=== PATIENT | female | born 1955 | race Caucasian/White ===

== ENCOUNTER → 2019-10-11 14:00 | Outpatient (CLI) | payer BC, MEDICARE, SELFPAY ==
--- NOTE | ~2019-10-11 | MR_ITS ---
EXAMINATION: MR lumbar spine wo con DATE: 10/11/2019 14:31 INDICATION: Low back pain. Incontinence. TECHNIQUE: Magnetic resonance imaging (MRI) of the lumbar spine was performed without intravenous con trast. Sequences included sagittal T2-weighted FSE, sagittal T2-weighted FS FSE, sagittal T1-weighted FSE, and axial T2-weighted FSE. COMPARISON: None FINDINGS: There is 3 mm anterolisthesis of L4 on L5. Vertebral body heights are normal. There is mild ly decreased disc height at L4-L5. The distal spinal cord signal intensity is normal. The conus medul kaelyn is at L2. The following disc levels are specifically discussed: L1-L2: The disc does not extend beyond the endplate margin. There is mild bilateral facet joint osteo arthritis. There is no neural foraminal stenosis. There is no central canal stenosis. L2-L3: The disc does not extend beyond the endplate margin. There is mild bilateral facet joint osteo arthritis. There is no neural foraminal stenosis. There is no central canal stenosis. L3-L4: The disc is mildly bulging. There is moderate right and mild left facet joint osteoarthritis. There is mild bilateral neural foraminal stenosis. There is no central canal stenosis. L4-L5: The disc is bulging. There is severe bilateral facet joint osteoarthritis. There is mild bilat eral neural foraminal stenosis. There is no central canal stenosis. L5-S1: The disc does not extend beyond the endplate margin. There is severe bilateral facet joint ost eoarthritis. There is mild bilateral neural foraminal stenosis. There is no central canal stenosis. IMPRESSION: 1. Mild lumbar spondylosis. Reviewed, dictated and finalized at location A. IMPRESSION: 1. Mild lumbar spondylosis.
== END ==
PROVIDERS: PCP Family Medicine; Visit Provider Family Medicine
DX: M54.5 Low back pain (principal); R15.9 Full incontinence of feces; M47.816 Spondylosis without myelopathy or radiculopathy, lumbar region
CPT/HCPCS: 72148

== ENCOUNTER 2020-01-30 08:37 | Emergency (ER) | payer MEDICARE, SELFPAY ==
--- NOTE | ~2020-01-30 | XR_ITS ---
EXAMINATION: XR chest 1V portable EXAM DATE: 01/30/2020 09:37 INDICATION: Shortness of breath, weakness. TECHNIQUE: Portable AP frontal chest x-ray was obtained. Comparison is made to prior examination from 01/26/2017. FINDINGS: Minimal linear left midlung zone atelectasis. The lungs are otherwise clear. There are no pleural effusions. Cardiac silhouette is prominent but magnified on this AP technique. There is no pneumothorax suspected. The bones and soft tissues are unremarkable. IMPRESSION: Minimal linear left midlung zone atelectasis. Reviewed, dictated and finalized at location B.
[2020-01-30 08:34] VITALS: BP 158/98; PULSE 88; RESP 16; TEMP 36.6; O2SAT 98
[2020-01-30 09:18] LABS: Basophils Percent Auto 0.5 % (0.2-1.2); Eosinophils Absolute Auto 0.1 K/mm3 (0-0.3); Eosinophils Percent Auto 1.4 % (0-4.4); Hematocrit 38.5 % (37.0-47.0); Hemoglobin 12.1 g/dL (12.0-15.0); Immature Granulocyte Absolute 0.04 K/mm3 (0.00-0.031); Immature Granulocyte Percent A 0.5 % (0-0.5); Lymphocytes Absolute Auto 1.96 K/mm3 (0.9-3.2); Lymphocytes Percent Auto 25.5 % (18.3-44.2); Mean Corpuscular HGB Conc 31.4 g/dl (32-36); Mean Corpuscular Hemoglobin 26.9 pg (26-34); Mean Corpuscular Volume 85.6 fl (80-100); Monocytes Absolute Auto 0.5 K/mm3 (0.1-0.6); Monocytes Percent Auto 5.9 % (2.6-8.5); Neutrophils Absolute Auto 5.1 K/mm3 (1.3-6.7); Neutrophils Percent Auto 66.2 % (45.5-73.1); Platelet Count Result 252 k/mm3 (150-375); Red Cell Distribution Width 15.1 % (11.5-14.5); White Blood Count 7.7 K/mm3 (4.5-10.0)
--- NOTE | 2020-01-30 09:23 | ED.ABDPAIN ---
HPI - Abdominal Pain General Chief Complaint: Abdominal Pain Stated Complaint: Abd pain Time Seen by Provider: 01/30/20 08:38 Source: patient Mode of arrival: EMS Limitations: no limitations History of Present Illness HPI narrative: This patient is a 64 year old female who presents for evaluation of diarrhea and nausea. Patient states she has had diarrhea for 4 days. This morning she reports 3 episodes with yellow and mucous stool. She denies any blood. She was evaluated at [facility] . She had labs and CT abdomen and pelvis and she was diagnosed with gastroenteritis. She states she does not feel any better so she has come to this ER. She is unsure of fever. She has not vomiting. She has long standing prescription of phenergan for nausea so she has taken that medication today. She has not take anti diarrhea medication since yesterday. Her is starting to develop symptoms. She denies cough or sore throat. She has chronic shortness of breath. MD elicited complaint: abdominal pain Pain Consistency: constant Associated symptoms: nausea and diarrhea Related Data Home Medications Medication Instructions Recorded Confirmed buspirone 10 mg tablet 20 mg PO BID tablet 06/20/19 12/25/19 timolol maleate 0.5 % eye drops 1 drop EACH EYE Q12H 06/20/19 12/25/19 vitamins A,C,V-evhn-isklxr 14,320 1 cap PO ONCE cap 06/20/19 12/25/19 unit-226 mg-200 unit capsule acetaminophen 650 mg 650 mg PO Q12H 11/20/19 12/25/19 tablet,extended release Allergies Allergy/AdvReac Type Severity Reaction Status Date / Time Cephalosporins Allergy Unknown Rash Verified 01/30/20 18:30 lactose Allergy Unknown Diarrhea Verified 01/30/20 18:30 Latex, Natural Rubber Allergy Unknown Rash Verified 01/30/20 18:30 metoclopramide Allergy Unknown Rash Verified 01/30/20 18:30 cephalexin AdvReac Intermediate c-diff Verified 01/30/20 18:30 erythromycin base AdvReac Mild Gastrointestinal Verified 01/30/20 18:30 Upset Sulfa (Sulfonamide AdvReac Mild Rash Verified 01/30/20 18:30 Antibiotics) sulfanilamide AdvReac Mild Rash Verified 01/30/20 18:30 Review of Systems Review of Systems: All systems reviewed & are unremarkable except as noted in HPI and below Constitutional: Constitutional: Denies chills, Denies fever(s) and Reports weakness Cardiovascular: Cardiovascular: Denies chest pain Respiratory: Respiratory: Denies cough and Reports dyspnea ( chronic) Gastrointestinal: Gastrointestinal: Reports abdominal pain, Reports diarrhea and Reports nausea Genitourinary: Genitourinary: Reports no additional female genitourinary complaints Musculoskeletal: Musculoskeletal: Reports no additional musculoskeletal complaints [facility] Social History Social History Smoking status: Never smoker Alcohol intake: current Exam Narrative: Exam Narrative: GENERAL:, well-nourished, and in no acute distress. obese HEAD: Normocephalic, atraumatic EYES: PERRLA and EOMI, conjunctiva clear without discharge THROAT:Mucous membranes moist, Oropharynx normal without erythema, exudate, peritonsillar swelling or fluctuance NECK: Supple, without lymphadenopathy or mass RESPIRATORY: No respiratory distress, Airway patent, Respirations non-labored, Clear to auscultation without rales, rhonchi or wheeze HEART: Regular rate and rhythm. No murmur heard. Normal peripheral pulses. ABDOMEN: Soft, nontender, nondistended, normal active bowel sounds. No masses. No rebound or guarding, No organomegaly. EXTREMITIES: No edema, normal strength with full range of motion. SKIN: Warm, dry, normal color without rash NEURO: Alert and oriented x3. CN 2-12 grossly intact. No focal deficits. PSYCH: Normal mood and affect. Course Reevaluation(s) Reevaluation #1: I have discussed with patient that I have spoke with Dr. Mcdonald who agrees with management. Her labs are unremarkable . I was able
[2020-01-30] MEDS: ONDANSETRON INJ 4 MG/2 ML VIAL IV PUSH (09:28)
[2020-01-30] MEDS: LACTATED RINGERS 1,000 ML 999 ML IV CONT (09:29)
[2020-01-30 09:30] LABS: Lactic Acid Reflex 0.9 mmol/L (0.7-2.1)
[2020-01-30 09:33] LABS: Alanine Aminotransferase 38 U/L (4-35); Albumin Level 3.9 g/dL (3.5-5.1); Alkaline Phosphatase 64 U/L (38-126); Aspartate Amino Transferase 35 U/L (14-36); Bilirubin,Total 0.5 mg/dL (0.2-1.3); Blood Urea Nitrogen 9 mg/dL (7-17); Calcium 9.3 mg/dL (8.4-10.2); Carbon Dioxide 27 mmol/L (22-30); Chloride 102 mmol/L (98-107); Estimated CRCL calculation 50 ml/min; Estimated Glomerular Filt Rate 56; Glucose 106 mg/dL (65-105); Lipase 44 U/L (23-300); Potassium 3.3 mmol/L (3.4-5.0); Sodium 136 mmol/L (137-145)
[2020-01-30 09:51] VITALS: BP 147/84; BP 158/97; PULSE 88; PULSE 89
[2020-01-30 09:52] VITALS: BP 155/97; PULSE 98
[2020-01-30 10:03] LABS: Add Urine Microscopic? YES; Appearance Urine Clear (Clear); Bacteria Urine Trace /hpf; Bilirubin Urine Negative (Negative); Blood Urine 1+ (Negative); Color Urine Yellow (Yellow); Glucose Urine UA Negative (Negative); Ketones Urine 1+ mg/dL (Negative); Leukocyte Esterase Ur Negative LEU/UL (Negative); Mucus Urine Heavy /lpf; Nitrate Urine Negative (Negative); Protein Urine 1+ mg/dL (Negative); Specific Grav Ur 1.028 (1.001-1.035); Squamous Epithelial Cell Urine Occasional /hpf (Few); Urobilinogen Urine Negative mg/dL (<2.0); WBC Urine 0-3 /hpf
[2020-01-30 11:00] VITALS: BP 138/92; PULSE 90; RESP 16; O2SAT 98
[2020-01-30 12:15] VITALS: BP 133/72; PULSE 80; RESP 16; O2SAT 98
[2020-01-30 22:36] LABS: SARS-CoV-2 RNA PCR Negative
== END 2020-01-30 12:15 | disposition home or self-care (01) ==
PROVIDERS: Emergency Provider General Practice; PCP Family Medicine
DX: R19.7 Diarrhea, unspecified (principal); Z20.828 Contact with and (suspected) exposure to other viral communicable diseases
CPT/HCPCS: 36415; 51701; 71045; 80053; 81001; 83605; 83690; 85025; 87635; 96361; 96365; 96375; 99284; C9803; J0131; J2405; J7120; U0003

== ENCOUNTER 2020-02-14 08:37 | Outpatient (CLI) | payer MEDICARE, SELFPAY ==
--- NOTE | 2020-02-14 08:39 | ECG_ITS ---
Measurements Intervals [place] Rate: 88 P: 249 IN: 135 QRS: -3 QRSD: 88 T: 25 QT: 370 QTc: 448 Interpretive Statements ECTOPIC ATRIAL RHYTHM BORDERLINE T WAVE ABNORMALITY- ANTERIOR LEADS ABNORMAL ECG Electronically Signed On 02-14-2020 11:10:27 CDT by Kota Pizarro D.O.
== END 2020-02-14 08:38 | disposition home or self-care (01) ==
LOC: ANHSURGERY 08:39
PROVIDERS: PCP Family Medicine; Visit Provider Orthopaedic Surgery
DX: Z01.818 Encounter for other preprocedural examination (principal); I10 Essential (primary) hypertension; R94.31 Abnormal electrocardiogram [ECG] [EKG]
CPT/HCPCS: 93005

== ENCOUNTER 2020-02-17 00:59 | Outpatient (CLI) | payer MEDICARE, SELFPAY ==
[2020-02-17 19:21] LABS: SARS-CoV-2 RNA PCR Negative
== END 2020-02-17 01:00 | disposition home or self-care (01) ==
LOC: ANHCOVIDDT 01:00
PROVIDERS: PCP Family Medicine; Visit Provider Orthopaedic Surgery
DX: Z01.812 Encounter for preprocedural laboratory examination (principal); Z11.59 Encounter for screening for other viral diseases
CPT/HCPCS: 87635; C9803; U0003

== ENCOUNTER 2020-02-19 02:54 | Day surgery (SDC) | payer MEDICARE, SELFPAY ==
--- NOTE | 2020-02-12 09:52 | PM.IMHP ---
H&P: HPI History of Present Illness Chief complaint: Right Carpal Tunnel Syndrome Narrative: Adrianna Vincent is a 64 year old female Who complains of numbness and tingling in her right hand in the median nerve distribution. This is chronic in nature. She has problems with gripping or grasping she can hold objects for long periods and has trouble manipulating fine objects as well. Her symptoms are worsening with time. She has nocturnal awakening and has to shake her hand to try to relieve her symptoms. Despite conservative measures including anti-inflammatories bracing and activity modification her symptoms continue. An EMG study shows median nerve compression at the carpal tunnel right hand. At this point the patient has discuss further treatment options in detail with Dr. Moise she would now like to proceed with right carpal tunnel release. Review of Systems Review of Systems: All systems reviewed & are unremarkable except as noted in HPI and below PMFSH Past Medical History Medical History Arthritis of right shoulder region BMI 36.0-36.9,adult Cervical radicular pain Cervical spondylosis with myelopathy and radiculopathy Hypertension Knee osteoarthritis Lumbar spondylolysis Right carpal tunnel syndrome Stage 3 chronic kidney disease Surgical History Surgical History History of ankle surgery History of hemorrhoidectomy Family History Family History Grandparent Family history of transient ischemic attacks Diabetes mellitus Father Cerebrovascular accident Carcinoma of colon Family history of diabetes mellitus in first degree relative Family history of heart disease in male family member before age 55 Mother Carcinoma of colon Sibling Family history of malignant neoplasm of brain Other Family history of malignant neoplasm of male breast Social History Social History Smoking status: Never smoker Alcohol intake: current Meds Home Medications and Allergies Home Medications Medication Instructions Recorded Confirmed Type buspirone 10 mg tablet 20 mg PO BID tablet 06/20/19 02/06/20 History timolol maleate 0.5 % eye drops 1 drop EACH EYE Q12H 06/20/19 02/06/20 History vitamins A,C,V-pxpd-hbhxvx 14,320 1 cap PO ONCE cap 06/20/19 02/06/20 History unit-226 mg-200 unit capsule hydrochlorothiazide 25 mg tablet 25 mg PO DAILY #90 tablet 07/09/19 02/06/20 Rx losartan 100 mg tablet 100 mg PO DAILY #90 tablet 07/09/19 02/06/20 Rx pregabalin 75 mg capsule 150 mg PO BID #120 cap 07/11/19 02/06/20 Rx duloxetine 60 mg capsule,delayed 60 mg PO DAILY #90 cap 07/16/19 02/06/20 Rx release promethazine 50 mg tablet 50 mg PO Q4-6H PRN #30 tablet 08/21/19 02/06/20 Rx rosuvastatin 20 mg tablet 20 mg PO DAILY #90 tablet 09/18/19 02/06/20 Rx cyclobenzaprine 10 mg tablet 10 mg PO TID PRN #90 tablet 10/15/19 02/06/20 Rx diphenoxylate-atropine 2.5 2 tablet PO Q6H PRN #60 tablet 10/22/19 02/06/20 Rx mg-0.025 mg tablet celecoxib 200 mg capsule 200 mg PO DAILY #90 cap 11/17/19 02/06/20 Rx acetaminophen 650 mg 650 mg PO Q12H 11/20/19 02/06/20 History tablet,extended release hydrocodone 5 mg-acetaminophen 325 1 tablet PO Q8H #90 tablet 12/16/19 02/06/20 Rx mg tablet lansoprazole 15 mg capsule,delayed 15 mg PO DAILY #30 cap 12/24/19 02/06/20 Rx release lorazepam 0.5 mg tablet 0.5 mg PO TID PRN #90 tablet 12/24/19 02/06/20 Rx lorazepam 0.5 mg tablet 0.5 mg PO TID PRN #90 tablet 01/08/20 02/06/20 Rx metoprolol succinate 50 mg 50 mg PO DAILY #30 tablet 02/06/20 02/06/20 Rx tablet,extended release 24 hr Allergies Allergy/AdvReac Type Severity Reaction Status Date / Time Cephalosporins Allergy Unknown Rash Verified 02/06/20 16:00 lactose Allergy Unknown Diarrhea Verified 02/06/20 16:00 Latex, Natural Ru
[2020-02-12 16:06] VITALS: BMI 33.3
--- NOTE | 2020-02-19 07:05 | WPDHPUPDATE1 ---
History and Physical Update Update Date/Time: 02/19/20 07:05 History and Physical has been reviewed, including an updated exam of the patient. There are NO changes in the patient's condition. Risks, benefits, and alternatives have been discussed and questions answered. Patient agrees to proceed with procedure.
--- NOTE | 2020-02-19 08:54 | WPDANESEPPF ---
Anes - Initial Pre Proc Eval Procedure: Operation Date: 02/19/20 10:30 Proposed Procedures p Right Carpal Tunnel Release - Daniel Moise MD Date/Time: 02/19/20 08:54 Surgeon: Daniel Moise MD Pre Op Diagnosis: Right Carpal Tunnel Syndrome Patient Data Age: 64 Gender: F Height: 5 ft 2.5 in Weight: 83.95 kg Allergies Allergy/AdvReac Type Severity Reaction Status Date / Time Cephalosporins Allergy Unknown Rash Verified 02/12/20 15:33 lactose Allergy Unknown Diarrhea Verified 02/12/20 15:33 Latex, Natural Rubber Allergy Unknown Rash Verified 02/12/20 15:33 metoclopramide Allergy Unknown Confusion Verified 02/12/20 15:33 cephalexin AdvReac Intermediate c-diff Verified 02/12/20 15:33 erythromycin base AdvReac Mild Gastrointestinal Verified 02/12/20 15:33 Upset Sulfa (Sulfonamide AdvReac Mild Rash Verified 02/12/20 15:33 Antibiotics) sulfanilamide AdvReac Mild Rash Verified 02/12/20 15:33 Home Medications Medication Instructions Recorded Confirmed Type buspirone 10 mg tablet 20 mg PO BID tablet 06/20/19 02/12/20 History pregabalin 75 mg capsule 150 mg PO BID #120 cap 07/11/19 02/12/20 Rx promethazine 50 mg tablet 50 mg PO Q4-6H PRN #30 tablet 08/21/19 02/12/20 Rx cyclobenzaprine 10 mg tablet 10 mg PO TID PRN #90 tablet 10/15/19 02/12/20 Rx diphenoxylate-atropine 2.5 2 tablet PO Q6H PRN #60 tablet 10/22/19 02/12/20 Rx mg-0.025 mg tablet celecoxib 200 mg capsule 200 mg PO DAILY #90 cap 11/17/19 02/12/20 Rx acetaminophen 650 mg 650 mg PO Q4-8H 11/20/19 02/12/20 History tablet,extended release hydrocodone 5 mg-acetaminophen 325 1 tablet PO Q8H #90 tablet 12/16/19 02/12/20 Rx mg tablet lansoprazole 15 mg capsule,delayed 15 mg PO DAILY #30 cap 12/24/19 02/12/20 Rx release duloxetine 60 mg PO HS 02/12/20 02/12/20 History hydrochlorothiazide 25 mg PO HS 02/12/20 02/12/20 History lorazepam 1 mg PO TID PRN 02/12/20 02/12/20 History losartan 100 mg PO HS 02/12/20 02/12/20 History metoprolol succinate 50 mg PO HS 02/12/20 02/12/20 History rosuvastatin [Crestor] 20 mg PO HS 02/12/20 02/12/20 History hydrocodone-acetaminophen [[place]] 1 tablet PO Q6H PRN #40 tablet 02/19/20 Rx Patient hx anesthesia problems: none Family hx anesthesia problems: none PMFSH Past Medical History Medical History Arthritis of right shoulder region BMI 36.0-36.9,adult Cervical radicular pain Cervical spondylosis with myelopathy and radiculopathy Hypertension Knee osteoarthritis Lumbar spondylolysis Right carpal tunnel syndrome Stage 3 chronic kidney disease Surgical History Surgical History History of ankle surgery History of hemorrhoidectomy Family History Family History Grandparent Family history of transient ischemic attacks Diabetes mellitus Father Cerebrovascular accident Carcinoma of colon Family history of diabetes mellitus in first degree relative Family history of heart disease in male family member before age 55 Mother Carcinoma of colon Sibling Family history of malignant neoplasm of brain Other Family history of malignant neoplasm of male breast Social History Social History Smoking status: Never smoker Alcohol intake: current Living arrangements: with family Spiritual care concerns: No Anes - Eval Final PreProcedure Day of Procedure 02/19/20 08:54 Patient weight: obese Heart: regular rate and rhythm Lungs: clear to auscultation Airway: Mallampati scale class II Neurological: alert and oriented Last oral intake: >/= 8 hours ASA classification: III Emergent: no Anesthetic plan: proceed Anesthesia type and monitoring: general GIVS and standard monitoring Informed Consent: The patient's anesthetic plan and its attendant risks and benef
[2020-02-19] MEDS: LACTATED RINGERS 1,000 ML 30 ML IV CONT (09:00)
[2020-02-19 09:12] VITALS: BP 136/95; PULSE 92; RESP 20; TEMP 36.1; O2SAT 97; BMI 37.9
[2020-02-19] MEDS: ACETAMINOPHEN 500 MG TABLET 1000 MG PO (09:34)
[2020-02-19] MEDS: KETOROLAC 15 MG/ML VIAL (*BKC) IV PUSH (09:35)
[2020-02-19] MEDS: ceFAZolin 2 GM/D5W 50 ML 2 GM/50 ML BAG IVPB (09:51)
--- NOTE | 2020-02-19 09:54 | PM.PROC ---
Procedure Note - Detailed Date of procedure: 02/19/20 Pre-op diagnosis: Right Carpal Tunnel Syndrome Post-op diagnosis: same Procedure performed: [Right] carpal tunnel release Description of procedure: After sterile prep and drape, I injected the area of intended incision with 10ml of 1% lidocaine. A longitudinal incision was made in line with the ulnar boarder of the third finger. Disection carried down to the fascia, the fascia split and the carpal ligament identified. The carpal ligament was released and the flexor retinaculum was released as well. The nerve was noted to be red purple in color and in continuity. The wound was irrigated, hemostatis was obtained and closed with 3-0 prolene. Anesthesia: MAC Surgeon: Daniel Moise MD Estimated blood loss (mL): 5 Drains: No Packing: No Pathology: none sent Complications: No immediate complications Condition: stable Disposition: same day
[2020-02-19 10:20] VITALS: BP 115/65; PULSE 92; RESP 16; O2SAT 93
[2020-02-19 10:50] VITALS: BP 134/67; PULSE 93; RESP 16; O2SAT 92
[2020-02-19 11:20] VITALS: BP 131/70; PULSE 93; RESP 16; O2SAT 92
== END 2020-02-19 12:00 | disposition home or self-care (01) ==
PROVIDERS: PCP Family Medicine; Visit Provider Orthopaedic Surgery
PROC: (CPT 64721; principal; 2020-02-19 10:30)
DX: G56.01 Carpal tunnel syndrome, right upper limb (principal); I12.9 Hypertensive chronic kidney disease with stage 1 through stage 4 chronic kidney disease, or unspecified chronic kidney disease; N18.3 Chronic kidney disease, stage 3 (moderate); E66.9 Obesity, unspecified; Z68.37 Body mass index [BMI] 37.0-37.9, adult
CPT/HCPCS: 64721; 87635; 93005; A9270; C9803; J0690; J1885; J2250; J2405; J2704; J3010; J7120; U0003

== ENCOUNTER 2020-04-20 07:43 | Outpatient (CLI) | payer MEDICARE, SELFPAY ==
[2020-04-20 09:17] LABS: Basophils Absolute Auto 0.1 K/mm3 (0.0-0.1); Basophils Percent Auto 0.6 % (0.2-1.2); Eosinophils Absolute Auto 0.3 K/mm3 (0-0.3); Eosinophils Percent Auto 2.8 % (0-4.4); Hematocrit 39.4 % (37.0-47.0); Hemoglobin 12.3 g/dL (12.0-15.0); Immature Granulocyte Absolute 0.05 K/mm3 (0.00-0.031); Immature Granulocyte Percent A 0.5 % (0-0.5); Lymphocytes Absolute Auto 2.38 K/mm3 (0.9-3.2); Lymphocytes Percent Auto 25.5 % (18.3-44.2); Mean Corpuscular HGB Conc 31.2 g/dl (32-36); Mean Corpuscular Hemoglobin 26.1 pg (26-34); Mean Corpuscular Volume 83.7 fl (80-100); Mean Platelet Volume 10.6 fl (7.4-10.4); Monocytes Absolute Auto 0.6 K/mm3 (0.1-0.6); Monocytes Percent Auto 6.3 % (2.6-8.5); Neutrophils Percent Auto 64.3 % (45.5-73.1); Platelet Count Result 257 k/mm3 (150-375); Red Blood Count 4.71 M/mm3 (4.2-5.4); Red Cell Distribution Width 13.9 % (11.5-14.5); White Blood Count 9.3 K/mm3 (4.5-10.0)
[2020-04-20 09:26] LABS: Urine Cotinine NEGATIVE
[2020-04-20 09:27] LABS: Albumin Level 4.1 g/dL (3.5-5.1); Hemoglobin A1C 6.1 % (<5.7)
[2020-04-20 09:28] LABS: Chloride 102 mmol/L (98-107)
[2020-04-20 09:36] LABS: Anion Gap 5 mmol/L (8-16); Blood Urea Nitrogen 15 mg/dL (7-17); Calcium 9.6 mg/dL (8.4-10.2); Carbon Dioxide 30 mmol/L (22-30); Estimated Glomerular Filt Rate 56; Glucose 113 mg/dL (65-105); Potassium 3.6 mmol/L (3.4-5.0); Sodium 137 mmol/L (137-145)
== END 2020-04-20 07:44 | disposition home or self-care (01) ==
LOC: ANHSURGERY 07:46
PROVIDERS: Anesthesiology; PCP Family Medicine; Visit Provider Orthopaedic Surgery
DX: Z01.818 Encounter for other preprocedural examination (principal); M17.11 Unilateral primary osteoarthritis, right knee; I10 Essential (primary) hypertension
CPT/HCPCS: 36415; 80048; 80307; 82040; 83036; 85025; 87081

== ENCOUNTER 2020-05-01 01:32 | Outpatient (CLI) | payer MEDICARE, SELFPAY ==
[2020-05-01 16:30] LABS: SARS-CoV-2 RNA PCR Negative
== END 2020-05-01 01:33 | disposition home or self-care (01) ==
LOC: ANHCOVIDDT 01:32
PROVIDERS: Orthopaedic Surgery; PCP Family Medicine; Visit Provider Orthopaedic Surgery
DX: Z01.812 Encounter for preprocedural laboratory examination (principal); Z20.828 Contact with and (suspected) exposure to other viral communicable diseases
CPT/HCPCS: 87635; C9803; U0003

== ENCOUNTER 2020-05-04 02:05 | Day surgery (SDC) | payer MEDICARE, SELFPAY ==
[2020-04-20 08:16] VITALS: BMI 37.7
[2020-04-20 11:10] VITALS: BP 145/83; PULSE 92; RESP 16; TEMP 36.6; O2SAT 96
--- NOTE | 2020-05-03 09:58 | WPDANESEPP ---
Anes - Eval Pre Procedure Procedure: Operation Date: 05/04/20 07:30 Proposed Procedures p Right Total Knee Arthroplasty - Osbaldo Mackenzie MD Date/Time: 05/03/20 09:58 Pre Op Diagnosis: OA right knee Patient Data Age: 64 Gender: F Height: 1.59 m Weight: 95 kg Last Vital Signs Temp 36.6 C 04/20/20 11:10 Pulse 92 04/20/20 11:10 Resp 16 04/20/20 11:10 BP 145/83 H 04/20/20 11:10 Pulse Ox 96 04/20/20 11:10 Allergies Allergy/AdvReac Type Severity Reaction Status Date / Time Cephalosporins Allergy Unknown Redness of Verified 04/20/20 08:06 Skin lactose Allergy Unknown Diarrhea Verified 04/20/20 08:06 Latex, Natural Rubber Allergy Unknown Rash Verified 04/20/20 08:06 metoclopramide Allergy Unknown Confusion Verified 04/20/20 08:06 cephalexin AdvReac Intermediate c-diff Verified 04/20/20 08:06 erythromycin base AdvReac Mild Gastrointestinal Verified 04/20/20 08:06 Upset Sulfa (Sulfonamide AdvReac Mild Rash Verified 04/20/20 08:06 Antibiotics) sulfanilamide AdvReac Mild Rash Verified 04/20/20 08:06 Home Medications Medication Instructions Recorded Confirmed Type buspirone 10 mg tablet 20 mg PO BID tablet 06/20/19 04/23/20 History pregabalin 75 mg capsule 150 mg PO BID #120 cap 07/11/19 04/23/20 Rx promethazine 50 mg tablet 50 mg PO Q4-6H PRN #30 tablet 08/21/19 04/23/20 Rx celecoxib 200 mg capsule 200 mg PO DAILY #90 cap 11/17/19 04/23/20 Rx acetaminophen 650 mg 650 mg PO Q4-8H 11/20/19 04/23/20 History tablet,extended release lansoprazole 15 mg capsule,delayed 15 mg PO DAILY #30 cap 12/24/19 04/23/20 Rx release duloxetine 60 mg PO HS 02/12/20 04/23/20 History hydrochlorothiazide 25 mg PO HS 02/12/20 04/23/20 History losartan 100 mg PO HS 02/12/20 04/23/20 History metoprolol succinate 50 mg PO HS 02/12/20 04/23/20 History rosuvastatin [Crestor] 20 mg PO HS 02/12/20 04/23/20 History cyclobenzaprine 10 mg tablet 10 mg PO TID PRN #90 tablet 03/11/20 04/23/20 Rx hydrocodone 7.5 mg-acetaminophen 1 tablet PO Q6H PRN #60 tablet 03/20/20 04/23/20 Rx 325 mg tablet lorazepam 0.5 mg tablet 1 mg PO TID PRN #90 tablet 03/20/20 04/23/20 Rx diphenoxylate-atropine [Lomotil] 2 tablet PO PRN PRN 04/20/20 04/23/20 History rivaroxaban 10 mg tablet 10 mg PO DAILY #13 tablet 04/20/20 04/23/20 Rx Patient hx anesthesia problems: none Family hx anesthesia problems: none PMFSH Past Medical History Medical History (Updated 05/03/20 @ 10:02 by Dwight Osman CRNA) Anxiety Arthritis Arthritis of right shoulder region BMI 36.0-36.9,adult BMI 37.0-37.9, adult Bronchitis Cervical radicular pain Cervical spondylosis with myelopathy and radiculopathy Chest pain unspecified angina 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 Depression GERD (gastroesophageal reflux disease) Hypertension Knee osteoarthritis Lumbar spondylolysis Migraines Nonspecific ST-T wave electrocardiographic changes Abnormal ST Wave Osteoarthritis of right knee Pneumonia Right carpal tunnel syndrome Shingles Stage 3 chronic kidney disease Surgical History Surgical History History of ankle surgery History of hemorrhoidectomy Social History Social History Smoking status: Never smoker Second hand tobacco smoke exposure: Yes () Additional smoking assessment comments: DENIES ANY FORM OF TOBACCO/NICOTINE USE Alcohol intake: current Spiritual care concerns: No Exam Day of Procedure 05/03/20 09:58
[2020-05-04] VITALS (15 sets, daily range): BP systolic 108–169; BP diastolic 62–90; PULSE 84–100; RESP 12–18; TEMP 36.2–37.2; O2SAT 93–100
--- NOTE | ~2020-05-04 | XR_ITS ---
EXAMINATION: XR knee RT 2V DATE: 05/04/2020 10:18 INDICATION: Postoperative evaluation following right total knee arthroplasty. TECHNIQUE: Anteroposterior and lateral views of the right knee were obtained. COMPARISON: 06/18/2019 FINDINGS: Right total knee arthroplasty with patellar resurfacing appears well seated and in near anatomic alig nment. No fractures identified. Skin abraham and expected postoperative subcutaneous and intra-shubham cular gas. IMPRESSION: 1. Right total knee arthroplasty, negative for postoperative purposes. Reviewed, dictated and finalized at location A.
--- NOTE | 2020-05-04 07:02 | WPDANESEPPF ---
Anes - Initial Pre Proc Eval Procedure: Operation Date: 05/04/20 07:30 Proposed Procedures p Right Total Knee Arthroplasty - Osbaldo Mackenzie MD Date/Time: 05/04/20 07:02 Surgeon: Osbaldo Mackenzie MD Pre Op Diagnosis: OA right knee Patient Data Age: 64 Gender: F Height: 1.59 m Weight: 95 kg Last Vital Signs Temp 36.6 C 04/20/20 11:10 Pulse 92 04/20/20 11:10 Resp 16 04/20/20 11:10 BP 145/83 H 04/20/20 11:10 Pulse Ox 96 04/20/20 11:10 Allergies Allergy/AdvReac Type Severity Reaction Status Date / Time Cephalosporins Allergy Unknown Redness of Verified 04/20/20 08:06 Skin lactose Allergy Unknown Diarrhea Verified 04/20/20 08:06 Latex, Natural Rubber Allergy Unknown Rash Verified 04/20/20 08:06 metoclopramide Allergy Unknown Confusion Verified 04/20/20 08:06 cephalexin AdvReac Intermediate c-diff Verified 04/20/20 08:06 erythromycin base AdvReac Mild Gastrointestinal Verified 04/20/20 08:06 Upset Sulfa (Sulfonamide AdvReac Mild Rash Verified 04/20/20 08:06 Antibiotics) sulfanilamide AdvReac Mild Rash Verified 04/20/20 08:06 Home Medications Medication Instructions Recorded Confirmed Type buspirone 10 mg tablet 20 mg PO BID tablet 06/20/19 05/04/20 History pregabalin 75 mg capsule 150 mg PO BID #120 cap 07/11/19 05/04/20 Rx promethazine 50 mg tablet 50 mg PO Q4-6H PRN #30 tablet 08/21/19 05/04/20 Rx celecoxib 200 mg capsule 200 mg PO DAILY #90 cap 11/17/19 05/04/20 Rx acetaminophen 650 mg 650 mg PO Q4-8H 11/20/19 05/04/20 History tablet,extended release lansoprazole 15 mg capsule,delayed 15 mg PO DAILY #30 cap 12/24/19 05/04/20 Rx release duloxetine 60 mg PO HS 02/12/20 05/04/20 History hydrochlorothiazide 25 mg PO HS 02/12/20 05/04/20 History losartan 100 mg PO HS 02/12/20 05/04/20 History metoprolol succinate 50 mg PO HS 02/12/20 05/04/20 History rosuvastatin [Crestor] 20 mg PO HS 02/12/20 05/04/20 History cyclobenzaprine 10 mg tablet 10 mg PO TID PRN #90 tablet 03/11/20 05/04/20 Rx hydrocodone 7.5 mg-acetaminophen 1 tablet PO Q6H PRN #60 tablet 03/20/20 05/04/20 Rx 325 mg tablet lorazepam 0.5 mg tablet 1 mg PO TID PRN #90 tablet 03/20/20 05/04/20 Rx diphenoxylate-atropine [Lomotil] 2 tablet PO PRN PRN 04/20/20 05/04/20 History rivaroxaban 10 mg tablet 10 mg PO DAILY #13 tablet 04/20/20 05/04/20 Rx Patient hx anesthesia problems: none Family hx anesthesia problems: [facility] Past Medical History Medical History (Updated 05/03/20 @ 10:02 by Dwight Osman CRNA) Anxiety Arthritis Arthritis of right shoulder region BMI 36.0-36.9,adult BMI 37.0-37.9, adult Bronchitis Cervical radicular pain Cervical spondylosis with myelopathy and radiculopathy Chest pain unspecified angina 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 Depression GERD (gastroesophageal reflux disease) Hypertension Knee osteoarthritis Lumbar spondylolysis Migraines Nonspecific ST-T wave electrocardiographic changes Abnormal ST Wave Osteoarthritis of right knee Pneumonia Right carpal tunnel syndrome Shingles Stage 3 chronic kidney disease Surgical History Surgical History History of ankle surgery History of hemorrhoidectomy Social History Social History Smoking status: Never smoker Second hand tobacco smoke exposure: Yes () Additional smoking assessment comments: DENIES ANY FORM OF TOBACCO/NICOTINE USE Alcohol intake: current Living arrangements: with family Spiritual care concerns: No Anes - Eval Final PreProcedure Day of Procedure 05/04/20 07:02 Patient weight: obese Heart: regular rate and rhythm Lungs: clear to auscultation and normal air movement Airway: Mallampati scale class III Neurological: alert and oriented Last oral intake: >/= 8 hours ASA classification: III Emergent: no Anesthetic plan: proceed Anesthesia type and m
--- NOTE | 2020-05-04 07:08 | WPDHPUPDATE1 ---
History and Physical Update Update Date/Time: 05/04/20 07:08 History and Physical has been reviewed, including an updated exam of the patient. There are NO changes in the patient's condition. Risks, benefits, and alternatives have been discussed and questions answered. Patient agrees to proceed with procedure.
[2020-05-04] MEDS: KETOROLAC 15 MG/ML VIAL (*BKC) IV PUSH (07:22)
[2020-05-04] MEDS: TRANEXAMIC ACID 1,000MG/ISO100 1,000 MG/100 ML BAG 200 MG IVPB (07:25)
[2020-05-04] MEDS: LACTATED RINGERS 1,000 ML 30 ML IV CONT ×2 (07:26→10:04)
[2020-05-04] MEDS: FAMOTIDINE 20 MG/2 ML VIAL IV PUSH (07:27)
[2020-05-04] MEDS: ceFAZolin 2 GM/D5W 50 ML 2 GM/50 ML BAG IVPB ×3 (07:34→22:26)
--- NOTE | 2020-05-04 07:34 | WPDANESPNB ---
Anes - Peripheral Nerve Block Date/Time: 05/04/20 07:34 I have discussed with the patient/family/POA the placement of a peripheral nerve block for post-operative pain management, including associated risks, benefits, complications, and side effects. Alternative methods of post-operative analgesia were detailed. Questions were solicited and answers provided to the satisfaction of the patient/family/POA. Time-Out: A pre-procedural Time-Out was completed immediately before starting the procedure and confirmed: Patient Identification, Site, Procedure, Patient Position and the Availability of Requisite Equipment. Clinical Indications: Acute post-operative pain management requested by the operative surgeon. Nerve Block Insertion Note Anes-nerve block: adductor canal right Patient position: supine Skin prep: chlorhexidine Needle: 22 gauge, stimulating, insulated echogenic needle. Needle length: 80 mm Technique: ultrasound Injectate: bupivacaine 0.5% with epi 5 mcg/ml (30cc) Observations: tolerated well Complications: none Procedure start time:: 727 Procedure end time:: 730
[2020-05-04] MEDS: BUPIVACAINE/EPINEPHRINE 0.5% 10 ML VIAL 40 ML INFILTRATE (08:16)
[2020-05-04] MEDS: ceFAZolin SODIUM 1 GM VIAL IV PUSH (09:43)
--- NOTE | 2020-05-04 10:08 | PM.PROC ---
Procedure Note - Detailed Date of procedure: 05/04/20 Pre-op diagnosis: OA right knee Post-op diagnosis: same Procedure performed: right total knee replacement Description of procedure: The patient was identified and proper site identified. In the preop holding area the anesthesia team performed a right sub sartorial block after which the patient was taken to the operating room and transferred to the OR table positioning supine taking care to pad the torso and extremities. After a spinal anesthetic was administered a nonsterile tourniquet was placed high on the right thigh. The right lower extremity was prepped and draped in the usual sterile fashion. The extremity was exsanguinated and with the knee flexed tourniquet was inflated to 300 mmHg remaining up for approximately 65 minutes. An anterior midline incision was made and a modified medial parapatellar approach was used. Infra and suprapatellar fat pads were excised. Patella was resected leaving 15 mm thickness and prepared for the 31 mm round three peg component. Using the intramedullary guide the distal femur was cut in the proper orientation for the size 60 femoral component. Using the extramedullary guide the tibia was cut perpendicular to the long axis protecting collateral ligaments and popliteal structures. It was sized to a 63. Flexion and extension gaps were balanced. Trial reduction was undertaken and the weight-bearing line was noted to passed through the center of the joint. Proximal tibia was drilled and punched in the proper orientation for the real component. Trial components were removed. The bone surfaces were washed with pulsatile lavage and dried. The real components were cemented simultaneously. The knee was held in extension and the patella held clamped until the cement had cured. Excess cement was removed from the joint. After trialing it was determined that the 10 mm insert gave full range of motion from 0-120 degrees of flexion and the patella tracked in the femoral groove with no lift-off. After final lavage the joint the real 10 mm insert was placed and secured with a locking bar. A Betadine and saline wash was placed into the wound and allowed to sit for approximately 3 minutes and then evacuated. Periarticular tissues were infiltrated with 60 cc of the arthroplasty solution. 1 g of tranexamic acid was left in the wound. The extensor mechanism was repaired with #2 Vicryl suture and 0 looped PDS suture. Subcu was reapproximated with abraham for the skin. A sterile dressing was applied. she tolerated the procedure well, was awakened and extubated, transferred to the bed and was taken to recovery area in stable condition. There were no known intraoperative complications. Perioperative antibiotics were administered. Anesthesia: MAC, regional and spinal Surgeon: Osbaldo Mackenzie MD Estimated blood loss (mL): 100 Tourniquet time (min): 65 Drains: No Packing: No Pathology: none sent Complications: No immediate complications Condition: stable Disposition: PACU
--- NOTE | 2020-05-04 15:37 | PM.IMCN ---
Assessment and Plan Assessment and plan (1) Osteoarthritis of right knee: Qualifiers: Osteoarthritis type: primary Qualified Code(s): M17.11 - Unilateral primary osteoarthritis, right knee Code(s): M17.11 - Unilateral primary osteoarthritis, right knee Status: Chronic Assessment and Plan: Adrianna Vincent is a 64 year old female with a past medical history of depression, hypertension and chronic back pain, also has severe osteoarthritis of the right knee patient had been seen her orthopedic surgeon and conservative management failed today was patient taken to OR and had right knee total arthroplasty, patient states the pain is better planning to participate in physical therapy, will like to go home with home health and physical therapy. (2) Benign hypertension: Code(s): I10 - Essential (primary) hypertension Status: Acute Assessment and Plan: will resume home medication patient blood pressure is well controlled (3) Hyperlipidemia: Code(s): E78.5 - Hyperlipidemia, unspecified Status: Acute Assessment and Plan: will continue home regimen HPI Data of Consult Consult date: 05/04/20 Requesting Physician: Osbaldo Mackenzie MD Primary Care Provider: Bernard Mcdonald MD Consult Narrative Narrative: Adrianna Vincent is a 64 year old female with a past medical history of depression, hypertension and chronic back pain, also has severe osteoarthritis of the right knee patient had been seen her orthopedic surgeon and conservative management failed today was patient taken to OR and had right knee total arthroplasty, patient states the pain is better planning to participate in physical therapy, will like to go home with home health and physical therapy. 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 Depression GERD (gastroesophageal reflux disease) Hypertension Knee osteoarthritis Lumbar spondylolysis Migraines Nonspecific ST-T wave electrocardiographic changes Abnormal ST Wave Osteoarthritis of right knee Pneumonia Right carpal tunnel syndrome Shingles Stage 3 chronic kidney disease Surgical History Surgical History History of ankle surgery History of hemorrhoidectomy Social History Social History Smoking status: Never smoker Second hand tobacco smoke exposure: Yes () Additional smoking assessment comments: DENIES ANY FORM OF TOBACCO/NICOTINE USE Alcohol intake: never Substance use: never Living arrangements: with family Gender identity (if verbalized by the patient): Female Spiritual care concerns: No Meds Home Medications and Allergies Home Medications Medication Instructions Recorded Confirmed Type buspirone 10 mg tablet 20 mg PO BID tablet 06/20/19 05/04/20 History pregabalin 75 mg capsule 150 mg PO BID #120 cap 07/11/19 05/04/20 Rx promethazine 50 mg tablet 50 mg PO Q4-6H PRN #30 tablet 08/21/19 05/04/20 Rx celecoxib 200 mg capsule 200 mg PO DAILY #90 cap 11/17/19 05/04/20 Rx acetaminophen 650 mg 650 mg PO Q4-8H 11/20/19 05/04/20 History tablet,extended release lansoprazole 15 mg capsule,delayed 15 mg PO DAILY #30 cap 12/24/19 05/04/20 Rx release duloxetine 60 mg PO HS 02/12/20 05/04/20 History hydrochlorothiazide 25 mg PO HS 02/12/20 05/04/20 History losartan 100 mg PO HS 02/12/20 05/04/20 History metoprolol succinate 50 mg PO HS 02/12/20 05/04/20 History rosuvastatin [Cresto
[2020-05-04] MEDS: busPIRone HCL 10 MG TABLET 20 MG PO (17:43)
[2020-05-04] MEDS: PREGABALIN (*CRX) 75 MG CAPSULE 150 MG PO (17:43)
[2020-05-04] MEDS: DOCUSATE SODIUM 100 MG CAPSULE PO (17:43)
[2020-05-04] MEDS: ACETAMINOPHEN 500 MG TABLET 1000 MG PO ×2 (17:43→23:50)
[2020-05-04] MEDS: METOPROLOL SUCCINATE EXT REL 50 MG TABCR PO (20:40)
[2020-05-04] MEDS: LOSARTAN POTASSIUM 100 MG TABLET PO (20:41)
[2020-05-04] MEDS: DULoxetine HCL 60 MG CAPSULE.DR PO (20:41)
[2020-05-04] MEDS: ROSUVASTATIN 10 MG TABLET 20 MG PO (20:41)
[2020-05-04] MEDS: hydroCHLOROthiazide 25 MG TABLET PO (20:41)
[2020-05-04] MEDS: oxyCODONE HCL (*CRX) 5 MG TAB IR PO (22:31)
[2020-05-05 01:06] VITALS: BP 123/72; PULSE 84; RESP 18; TEMP 36.4; O2SAT 97
[2020-05-05 05:06] VITALS: BP 137/63; PULSE 81; RESP 20; TEMP 36.3; O2SAT 98
[2020-05-05] MEDS: ceFAZolin 2 GM/D5W 50 ML 2 GM/50 ML BAG IVPB (06:33)
[2020-05-05] MEDS: ACETAMINOPHEN 500 MG TABLET 1000 MG PO ×2 (06:33→12:21)
--- NOTE | 2020-05-05 07:28 | PM.PNORT ---
Progress Note: A&P Assessment and Plan (1) History of total right knee replacement: Code(s): Z96.651 - Presence of right artificial knee joint Status: Acute (2) Osteoarthritis of right knee: Qualifiers: Osteoarthritis type: primary Qualified Code(s): M17.11 - Unilateral primary osteoarthritis, right knee Code(s): M17.11 - Unilateral primary osteoarthritis, right knee Status: Resolved Assessment and Plan: 64-year-old female postop day one right total knee replacement. Overall she has done very well. She is going to be discharged home. Because of her 's health status, I have arranged for home health physical therapy to start in a couple of days. Also want her to keep tabs on the proximal aspect of her wound and change the dressing as needed. This was explained to her. ( She has a nursing background.) She has an appointment to see me in approximately two weeks but asked her to call with any questions prior to follow-up. Regarding using aspirin after the Xarelto, she said that aspirin causes her to be a little bit nauseous but she believes that she can use a coated baby aspirin without any difficulty. Subjective Subjective Date/Time Seen: 05/05/20 07:28 Post Op day: 1 Principal diagnosis: Status post right total knee replacement Interval history: 64-year-old female who is postop day one right total knee replacement and did very well overnight. Review of Systems Constitutional: Constitutional: Denies chills and Denies fever(s) Eyes: Eyes: Reports no additional eye complaints ENT: Reports system reviewed and no additional complaints, except as documented Respiratory: Respiratory: Reports no additional respiratory complaints Gastrointestinal: Gastrointestinal: Denies abdominal pain and Denies bloating Exam Const: General: cooperative, no acute distress and alert Nutritional Appearance: other Orientation/consciousness: patient oriented x3 Limitations: no limitations HENMT: Head: normal to inspection Ears: hearing grossly normal bilaterally Face and sinus: face symmetric Mouth: Yes moist mucous membranes Teeth and gingiva: fair dentition Eyes: Alignment and Position: alignment normal and position normal Sclera: sclerae normal Neck: Neck: normal visual inspection and nontender Chest: Chest palpation & inspection: normal inspection of the chest Resp: Effort & Inspection: normal respiratory effort and able to speak in complete sentences GI: Inspection: other ( Nondistended) Skin: General skin exam: normal color Rashes: no rashes Neuro: General: patient oriented x3 Cognition (Neuro): normal cognition Speech: normal speech Gait exam (Neuro): Other gait observations present Extrem: General: normal to inspection and other Other: Exam of her right knee shows a small amount of drainage proximally along the incision. No erythema and minimal swelling. Neurovascular status to the right lower extremity is unremarkable. Calves are negative. Psych: Appearance: grossly normal Mental Status: mental status grossly normal Objective Data Vital Signs Vital Signs: Vital Signs - 24 hr 05/04/20 10:00 05/04/20 10:04 05/04/20 10:15 Temperature 97.5 F L Pulse Rate 88 93 Respiratory Rate 12 16 Blood Pressure 128/72 129/79 Pulse Oximetry 96 100 100 05/04/20 10:30 05/04/20 10:45 05/04/20 11:00 Temperature 98.0 F Pulse Rate 99 100 99 Respiratory Rate 16 18 18 Blood Pressure 149/82 H 150/82 H 132/79 Pulse Oximetry 98 97 93 05/04/20 11:15 05/04/20 11:21 05/04/20 11:36 Temperature 98.3 F 98 F Pulse Rate 99 96 98 Respiratory Rate 18 17 15 Blood Pressure 140/80 128/66 134/71 Pulse Oximetry 93 98 97 05/04/20 12:06 05/04/20 13:06 05/04/20 17:06 Temperature 98.1 F 99 F 98.5 F Pulse Rate 91 99 97 Respiratory Rate 17 15 15 Blood Pressure 124/74 143/78 H 147/76 H Pulse Oximetry 94 97 94 05/04/20 20:40 05/04/20 21:06 05/05/20 01:06 Temperature
--- NOTE | 2020-05-05 07:41 | WPDANESPN ---
Anes - Prog Note Post-Op Date/Time: 05/05/20 07:41 Cardiovascular status: normal Respiratory status: normal Airway patency: baseline Mental status: baseline Post-Op hydration status: normal Vital Signs: Last Vital Signs Temp 36.3 C L 05/05/20 05:06 Pulse 81 05/05/20 05:06 Resp 20 05/05/20 05:06 BP 137/63 05/05/20 05:06 Pulse Ox 98 05/05/20 05:06 Pain Score (VAS): 4 I/O: Intake & Output 05/04/20 05/04/20 05/05/20 15:59 23:59 07:59 Intake Total 340 640 870 Output Total 1200 Balance 340 640 -330 05/04/20 07:00 Blood Type O Positive Antibody Screen Negative Post-procedural complaints: none Patient Feedback: Patient satisfied with anesthetic care.
--- NOTE | 2020-05-05 07:43 | PM.DS ---
DS: Admitting Diagnosis Admitting Diagnosis Admitting Diagnosis: OA right knee DS: Discharge Diagnosis Discharge Diagnosis (1) History of total right knee replacement: Code(s): Z96.651 - Presence of right artificial knee joint Status: Acute (2) Osteoarthritis of right knee: Qualifiers: Osteoarthritis type: primary Qualified Code(s): M17.11 - Unilateral primary osteoarthritis, right knee Code(s): M17.11 - Unilateral primary osteoarthritis, right knee Status: Resolved DS: Summary Hospital Course Reason for hospitalization: for right total knee replacement surgery Hospital Course: Following the patient's surgery she was admitted to the floor to begin her therapy. She did quite well and is going to be discharged home with home health physical therapy. Status at Discharge Functional status at discharge: uses cane/walker Time Spent with Patient Time attestation: Total time spent providing and/or coordinating discharge services: Exam Const: General: cooperative, no acute distress and alert Nutritional Appearance: other Orientation/consciousness: patient oriented x3 Limitations: no limitations HENMT: Head: normal to inspection Ears: hearing grossly normal bilaterally Face and sinus: face symmetric Mouth: Yes moist mucous membranes Teeth and gingiva: fair dentition Eyes: Alignment and Position: alignment normal and position normal Sclera: sclerae normal Neck: Neck: normal visual inspection and nontender Chest: Chest palpation & inspection: normal inspection of the chest Resp: Effort & Inspection: normal respiratory effort and able to speak in complete sentences GI: Inspection: other ( Nondistended) Skin: General skin exam: normal color Rashes: no rashes Neuro: General: patient oriented x3 Cognition (Neuro): normal cognition Speech: normal speech Gait exam (Neuro): Other gait observations present Extrem: General: normal to inspection and other Other: Exam of her right knee shows a small amount of drainage proximally along the incision. No erythema and minimal swelling. Neurovascular status to the right lower extremity is unremarkable. Calves are negative. Psych: Appearance: grossly normal Mental Status: mental status grossly normal DS: Data Data Completed and Pending Labs on day of discharge: Labs from last 24 hours 05/04/20 07:00 Blood Type O Positive Antibody Screen Negative Discharge Plan Discharge Patient Disposition: Home, Self-Care Discharge Instructions: 3 times daily for 20 minutes each time, reclining in bed with ice packs over the incision and a pillow underneath the affected calf. Assess the dressing and daily. If there is more than 50% saturation, replace it with a new Mepilex dressing Be sure to read through all the information that came from a my office and the hospital. Most of the answer was you will need can be found that material. Call the office with any questions that you cannot find answers to, or concerns you may have. After the Xarelto is completed, start taking one coated 81 mg aspirin tita,y and do this for four more weeks. Please call [facility] at as soon as possible to verify your follow-up appointment to be seen in two weeks. Also, call the office with any orthopedic/surgical related questions prior to follow-up. Be sure to get up and move around several times daily but do not overdo it. Patient Instructions: Rivaroxaban (By mouth), Pain Management (DC), Joint Replacement Surgery (DC), Knee Arthroscopy (DC) Discharge Medications: New oxycodone 5 mg Tablet 5 mg PO Q6H PRN (Reason: Pain ) Qty: 30 RF: 0 Continued buspirone 10 mg tablet 20 mg PO BID RF: 0 pregabalin 75 mg capsule 150 mg PO BID Qty: 120 RF: 3 acetaminophen [Tylenol Arthritis Pain] 650 mg tablet extended release 650 mg PO Q4-8H RF: 0 Xarelto 10 mg tablet 10 mg PO DAILY Qty: 13 RF: 0 lo
[2020-05-05] MEDS: PREGABALIN (*CRX) 75 MG CAPSULE 150 MG PO (09:01)
[2020-05-05] MEDS: busPIRone HCL 10 MG TABLET 20 MG PO (09:01)
[2020-05-05] MEDS: PANTOPRAZOLE 40 MG TABLET PO (09:02)
[2020-05-05] MEDS: DOCUSATE SODIUM 100 MG CAPSULE PO (09:02)
[2020-05-05 09:46] VITALS: BP 134/68; PULSE 83; RESP 14; TEMP 36.4; O2SAT 98
[2020-05-05] MEDS: RIVAROXABAN 10 MG TABLET PO (09:50)
[2020-05-05] MEDS: oxyCODONE HCL (*CRX) 2.5 MG TAB IR 7.5 MG PO (09:50)
[2020-05-05] MEDS: polyethylene glycoL 3350 17 GM POWD.PACK PO (09:51)
--- NOTE | 2020-05-05 12:43 | PM.IMPN ---
Progress Note: A&P Assessment and Plan (1) Osteoarthritis of right knee: Qualifiers: Osteoarthritis type: primary Qualified Code(s): M17.11 - Unilateral primary osteoarthritis, right knee Code(s): M17.11 - Unilateral primary osteoarthritis, right knee Status: Resolved Assessment and Plan: 05/05/20 12:43 Adrianna Vincent is a 64 year old female with a past medical history of depression, hypertension and chronic back pain, also has severe osteoarthritis of the right knee patient had been seen her orthopedic surgeon and conservative management failed on 05/04 was taken to OR and had right knee total arthroplasty, patient states the pain is better, was able to walk in the corridor planning to participate in physical therapy later today and patient was seen by her surgeon and will be discharged home with home health and physical therapy. (2) Benign hypertension: Code(s): I10 - Essential (primary) hypertension Status: Acute Assessment and Plan: will resume home medication patient blood pressure is well controlled (3) Hyperlipidemia: Code(s): E78.5 - Hyperlipidemia, unspecified Status: Acute Assessment and Plan: will continue home regimen Subjective Date/time seen: 05/05/20 12:43 Adrianna Vincent is a 64 year old female with a past medical history of depression, hypertension and chronic back pain, also has severe osteoarthritis of the right knee patient had been seen her orthopedic surgeon and conservative management failed on 05/04 was taken to OR and had right knee total arthroplasty, patient states the pain is better, was able to walk in the corridor planning to participate in physical therapy later today and patient was seen by her surgeon and will be discharged home with home health and physical therapy. Review of Systems Review of Systems: All systems reviewed & are unremarkable except as noted in HPI and below Exam Narrative: Exam Narrative: moderately obese Const: General: no acute distress and in distress HENMT: General nose exam: Normal nares present Eyes: Sclera: sclerae normal Neck: Neck: supple Resp: Effort & Inspection: normal respiratory effort Auscultation: clear to auscultation bilaterally Cardio: Rate: regular rate Rhythm: regular rhythm GI: Auscultation: normal bowel sounds Skin: General skin exam: normal color Neuro: Speech: normal speech Sensory Exam: normal sensation Extrem: Other: right knee with a wound dressing Psych: Affect: Anxious affect present Objective Data Vital Signs Vital Signs: Vital Signs - 24 hr 05/04/20 13:06 05/04/20 17:06 05/04/20 20:40 Temperature 99 F 98.5 F Pulse Rate 99 97 86 Respiratory Rate 15 15 Blood Pressure 143/78 H 147/76 H Pulse Oximetry 97 94 05/04/20 21:06 05/05/20 01:06 05/05/20 05:06 Temperature 98.4 F 97.6 F 97.3 F L Pulse Rate 89 84 81 Respiratory Rate 16 18 20 Blood Pressure 108/62 123/72 137/63 Pulse Oximetry 94 97 98 05/05/20 09:46 Temperature 97.5 F L Pulse Rate 83 Respiratory Rate 14 Blood Pressure 134/68 Pulse Oximetry 98 Intake/Output Intake/Output: Intake & Output 05/02/20 05/03/20 05/04/20 05/05/20 23:59 23:59 23:59 23:59 Intake Total 980 1350 Output Total 1200 Balance 980 150 Meds/Results Medications: Active Medications Generic Name Dose Route Start Last Admin Trade Name Freq PRN Reason Stop Dose Admin Acetaminophen 1,000 mg 05/04/20 18:00 05/05/20 12:21 Tylenol Tablet PO 1,000 mg Q6H JORGE Administration Buspirone HCl 20 mg 05/04/20 17:00 05/05/20 09:01 Buspar PO 20 mg BID JORGE Administration Cyclobenzaprine HCl 10 mg 05/04/20 11:21 Flexeril PO TID PRN muscle spasm Diphenoxylate HCl/Atropine 2 tablet 05/04/20 11:21 Lomotil Tab 2.5 Mg PO PRN PRN diarrhea Docusate Sodium 100 mg 05/04/20 17:00 05/05/20 09:02 Colace Capsule PO 100 mg BID JORGE Admi
[2020-05-05 13:55] VITALS: BP 151/84; PULSE 96; RESP 14; TEMP 36.6; O2SAT 95
[2020-05-05] MEDS: oxyCODONE HCL (*CRX) 5 MG TAB IR PO (15:02)
== END 2020-05-05 15:04 | disposition home health service (06) ==
LOC: ANHSURGERY 06:16 → ANH2MED 11:22
PROVIDERS: PCP Family Medicine; Visit Provider Orthopaedic Surgery
PROC: (CPT 27447; principal; 2020-05-04 07:30)
DX: M17.11 Unilateral primary osteoarthritis, right knee (principal); G89.18 Other acute postprocedural pain; I12.9 Hypertensive chronic kidney disease with stage 1 through stage 4 chronic kidney disease, or unspecified chronic kidney disease; N18.30 Chronic kidney disease, stage 3 unspecified; E78.5 Hyperlipidemia, unspecified; F41.9 Anxiety disorder, unspecified; M47.22 Other spondylosis with radiculopathy, cervical region; Z79.01 Long term (current) use of anticoagulants
CPT/HCPCS: 27447; 64447; 36415; 73560; 86850; 86900; 86901; 97110; 97116; 97161; 97165; A9270; C1713; C1776; J0131; J0690; J1100; J1885; J2250; J2405; J2704; J3010; J3370; J7120

== ENCOUNTER 2021-02-05 09:23 | Outpatient (CLI) | payer MEDICARE, SELFPAY ==
--- NOTE | ~2021-02-05 | NM_ITS ---
EXAMINATION: NM almita stress w perfusion DATE: 02/05/2021 12:28 INDICATION: Dyspnea on exertion. TECHNIQUE: Rest images were obtained following intravenous administration of 9.44 mCi Tc99m tetrofosm in (Myoview). The patient was infused intravenously with Lexiscan (regadenoson). Then, 30.9 mCi Tc99m tetrofosmin (Myoview) was administered intravenously, and stress images were obtained. Data was lokesh nstructed into short axis and horizontal and vertical long axis SPECT images. Gated SPECT images were also obtained. COMPARISON: Myocardial perfusion imaging 12/30/2008 FINDINGS: There is no definite reversible or fixed perfusion abnormality to suggest ischemia or infar ction. There is no segmental wall motion abnormality. Left ventricular ejection fraction measures 6 6%. IMPRESSION: 1. No definite ischemia or infarct. 2. Normal left ventricular ejection fraction measuring 66%. Reviewed, dictated and finalized at location A.
--- NOTE | 2021-02-05 09:33 | EST_ITS ---
Patient Info Name: Adrianna Vincent Age: 65 years : 1955 Gender: Female Ht: 62 in Wt: 180 lbs BSA: 1.92 m2 Exam Date: 02/05/2021 11:04 AM Exam Location: [facility] Stress Patient Status: Outpatient Admit Date: 02/05/2021 Staff Ordering Physician: Bernard Mcdonald MD Attending Provider: Bernard Mcdonald MD Exercise Technologist: Loren Jordan RDCS Exercise Physician: Kota Pizarro DO Exam Type: CA stress almita w NM Study Info Indications R06.00 - Dyspnea, unspecified A regadenoson stress test was performed. Summary 1. 1. Negative lexiscan stress test for ischemic ST changes by ECG criteria. 2. 2. Stable hemodynamics throughout the test. 3. 3. Nuclear scan to follow and will be reported separately. Please correlate with it. 4. 4. Patient informed of the above results. Protocol: Lexiscan Stress ECG Details Stage: REST Duration (min): 6 min : 1 sec HR (bpm): 90 SBP (mmHg): 155 DBP (mmHg): 84 Stage: REST Duration (min): 10 min : 56 sec HR (bpm): 88 SBP (mmHg): 155 DBP (mmHg): 84 Stage: STAGE 1 Duration (min): 0 min : 59 sec HR (bpm): 94 SBP (mmHg): 155 DBP (mmHg): 84 Stage: RECOVERY Duration (min): 1 min : 0 sec HR (bpm): 96 SBP (mmHg): 155 DBP (mmHg): 84 Stage: RECOVERY Duration (min): 2 min : 0 sec HR (bpm): 96 SBP (mmHg): 143 DBP (mmHg): 77 Stage: RECOVERY Duration (min): 3 min : 0 sec HR (bpm): 95 SBP (mmHg): 141 DBP (mmHg): 76 Stage: RECOVERY Duration (min): 3 min : 3 sec HR (bpm): 95 SBP (mmHg): 141 DBP (mmHg): 76 Rest HR: 88 bpm Peak HR: 98 bpm Rest Sys BP: 155 mmHg Peak Sys BP: 143 mmHg Max Pred HR: 154 bpm % Max Pred HR: 64 % Target HR: 131 bpm Max RPP: 14,014 bpm*mmHg Termination Reason: Completed protocol Cardiac Symptoms: Shortness of breath, Headache Total Time: 1 min : 0 sec Rest Nieves BP: 84 mmHg Peak Nieves BP: 77 mmHg Total Dose: 0.4 mg Resting ECG Sinus rhythm, IRBBB, borderline T wave in anterior leads. Stress ECG No ST changes. Arrhythmias Transient change to ectopic atrial rhythm with lexiscan. Report Signatures
== END 2021-02-05 09:24 | disposition home or self-care (01) ==
PROVIDERS: PCP Family Medicine; Visit Provider Family Medicine
DX: I49.1 Atrial premature depolarization (principal); R06.00 Dyspnea, unspecified
CPT/HCPCS: 78452; 93017; A9502; J2785

== ENCOUNTER 2021-03-25 15:06 | Outpatient (CLI) | payer MEDICARE, SELFPAY ==
--- NOTE | 2021-03-25 16:27 | WPDPFTINT ---
PFT Procedure Performed PFT Procedure Performed Spirometry with Pre/Post Bronchodilator Plethysmography (Lung Vol) Diffusing Cap (DLCO) Flow Vol Loop PFT Interpretation This is a pulmonary function test with pre and post-bronchodilator spirometry, plethysmography and diffusing capacity. The test was performed and results interpreted in accordance with the 2019 and 2005 ATS/ERS Task Force guidelines respectively using the Global Lung Function Initiative-2012 reference equations. Patient demonstrated good effort and cooperation. Reproducibility criteria were met. The quality of the pre bronchodilator spirometry maneuver was Grade E and post bronchodilator spirometry maneuver was Grade E. the patient had difficulty with spirometry. Multiple times but the patient was and able to complete more than 1 usable trial. Patient was also only able to perform 1 DLCO maneuver. Findings: Spirometry: The contour of the inspiratory and expiratory flow tracing are normal. The pre bronchodilator FVC is 2.15 L, 78% predicted. The pre bronchodilator FEV1 is 1.79 L, 83% predicted. The FEV1: FVC ratio was 83%. The post bronchodilator FVC is 2.39 L, representing an 11% increase. The post bronchodilator FEV1 is 1.92 L, representing a 7% increase. Plethysmography: The total lung capacity is 4.03 L, 85% predicted. Functional residual capacity is 1.97 L, 73% predicted. The residual volume is 1.59 L, 80% predicted. Diffusing capacity: The absolute diffusion capacity is 10.6, 53% predicted. The diffusing capacity corrected for alveolar volume is 4.79, 108% predicted. Impression: The patient had difficulty performing the spirometry and the DLCO with only 1 acceptable maneuver for these tests available for interpretation. The spirometry is normal without evidence of an obstructive abnormality. There is no significant improvement after inhaling a single dose of albuterol. The lung volumes are normal. The absolute diffusing capacity is moderately decreased and normalizes when corrected for alveolar volume. There are no prior studies for comparison
== END 2021-03-25 15:07 | disposition home or self-care (01) ==
LOC: ANHPFT 15:06
PROVIDERS: PCP Family Medicine; Visit Provider Family Medicine
DX: R06.00 Dyspnea, unspecified (principal)
CPT/HCPCS: 94060; 94726; 94729

== ENCOUNTER → 2021-04-10 01:56 | Outpatient (CLI) | payer MEDICARE, SELFPAY ==
[2021-04-10 19:28] LABS: SARS-CoV-2 RNA PCR Negative
== END ==
PROVIDERS: PCP Family Medicine; Visit Provider Internal Medicine Gastroenterology
DX: Z01.812 Encounter for preprocedural laboratory examination (principal); Z20.822 Contact with and (suspected) exposure to COVID-19
CPT/HCPCS: C9803; U0003; U0005

== ENCOUNTER 2021-04-14 00:53 | Day surgery (SDC) | payer MEDICARE, SELFPAY ==
[2021-04-06 15:14] VITALS: BMI 32.3
--- NOTE | 2021-04-14 07:20 | WPDANESEPPF ---
Anes - Initial Pre Proc Eval Procedure: Operation Date: 04/14/21 09:30 Proposed Procedures p Esophagogastroduodenoscopy & Screening Colonoscopy - John Castellano MD Date/Time: 04/14/21 07:20 Surgeon: John Castellano MD Pre Op Diagnosis: family hx colon ca Z85.038 GERD K21.9 Patient Data Age: 65 Gender: F Height: 1.59 m Weight: 81.5 kg Allergies Allergy/AdvReac Type Severity Reaction Status Date / Time cephalexin Allergy Intermediate c-diff Verified 04/06/21 15:20 metoclopramide Allergy Intermediate Confusion Verified 04/06/21 15:20 Cephalosporins AdvReac Intermediate Redness of Verified 04/06/21 15:20 Skin Latex, Natural Rubber AdvReac Intermediate Rash Verified 04/06/21 15:20 erythromycin base AdvReac Mild Gastrointestinal Verified 04/06/21 15:20 Upset Sulfa (Sulfonamide AdvReac Mild Rash Verified 04/06/21 15:20 Antibiotics) sulfanilamide AdvReac Mild Rash Verified 04/06/21 15:20 Home Medications Medication Instructions Recorded Confirmed Type acetaminophen 650 mg 650 mg PO Q8H 11/20/19 04/06/21 History tablet,extended release diphenoxylate-atropine 2.5 2 tablet PO PRN PRN #14 tablet 11/16/20 04/06/21 Rx mg-0.025 mg tablet cyclobenzaprine 10 mg tablet 10 mg PO TID PRN #90 tablet 02/25/21 04/06/21 Rx hydrocodone 7.5 mg-acetaminophen 1 tablet PO Q6H PRN #60 tablet 02/26/21 04/06/21 Rx 325 mg tablet promethazine 50 mg tablet 50 mg PO Q4-6H PRN #30 tablet 02/26/21 04/06/21 Rx bupropion HCl 200 mg PO HS 04/06/21 04/06/21 History fluoxetine 40 mg PO HS 04/06/21 04/06/21 History losartan 100 mg PO HS 04/06/21 04/06/21 History Patient hx anesthesia problems: none Family hx anesthesia problems: none PMFSH Past Medical History Medical History (Updated 02/26/21 @ 10:59 by Bernard Mcdonald MD) Anxiety Arthritis Arthritis of right shoulder region BMI 31.0-31.9,adult BMI 36.0-36.9,adult BMI 37.0-37.9, adult BMI greater than 30 Bronchitis Cervical radicular pain Cervical spondylosis with myelopathy and radiculopathy Chest pain unspecified angina 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 Depression Dyspnea Dyspnea on exertion Ectopic atrial rhythm Essential (primary) hypertension Ganglion cyst of tendon sheath of left hand GERD (gastroesophageal reflux disease) GERD without esophagitis Hypertension Knee osteoarthritis Lumbar spondylolysis Migraines Nausea Nausea and vomiting Nonspecific ST-T wave electrocardiographic changes Abnormal ST Wave Osteoarthritis of right knee right total knee April 2020 Pneumonia Right carpal tunnel syndrome Screen for colon cancer Screening mammogram for high-risk patient Shingles Stage 3 chronic kidney disease Surgical History Surgical History History of ankle surgery History of hemorrhoidectomy History of total right knee replacement surgery April 2020 Family History Family History Grandparent Family history of transient ischemic attacks Diabetes mellitus Father Cerebrovascular accident Carcinoma of colon Family history of diabetes mellitus in first degree relative Family history of heart disease in male family member before age 55 Mother Carcinoma of colon Sibling Family history of malignant neoplasm of brain Other Family history of malignant neoplasm of male breast Social History Social History Smoking status: Never smoker Second hand tobacco smoke exposure: Yes () Additional smoking assessment comments: DENIES ANY FORM OF TOBACCO/NICOTINE USE Alcohol intake: never Alcohol use details: Occational Substance use: never Substance use type: does not use Living arrangements: with family Gender identity (if verbalized by the patient): Female Spiritual care concerns: No Anes - Eval Fi
[2021-04-14 08:47] VITALS: BP 151/85; PULSE 97; RESP 18; TEMP 36.7; O2SAT 98; BMI 33.4
[2021-04-14] MEDS: LACTATED RINGERS 1,000 ML 150 ML IV CONT (09:00)
--- NOTE | 2021-04-14 09:07 | PM.HPGS ---
History of Present Illness History of Present Illness Consent: Risks, benefits, and alternatives have been discussed and questions answered. Patient agrees to proceed with procedure. Chief complaint: family hx colon ca Z85.038 GERD K21.9 Narrative: Adrianna Vincent is a 65 year old female with last colonoscopy 2015, both parents and most recently sister with colon cancer. Also gerd for years but lately more choking sensation, not longer using ppi. Had EGD in the Review of Systems Constitutional: Constitutional: Denies headache(s) and Denies weakness Eyes: Eyes: Denies blurry vision ENT: Reports Normal hearing present, Denies headache(s) and Denies neck pain Cardiovascular: Cardiovascular: Denies chest pain and Denies dyspnea Respiratory: Respiratory: Denies dyspnea Gastrointestinal: Gastrointestinal: Reports no additional gastrointestinal complaints Genitourinary: Genitourinary: Denies dysuria Musculoskeletal: Musculoskeletal: Denies neck pain Integumentary/Breasts: Skin/Breast: Denies dry skin Neurologic: Reports Normal hearing present, Denies headache(s) and Denies weakness Psychiatric: Psychiatric: Denies anxiety Endocrine: Endocrine: Denies change in body appearance Hematologic/Lymphatic: Hematologic/Lymphatic: Denies easy bleeding Allergic/Immunologic: Allergic/Immunologic: Denies urticaria PMF Past Medical History Medical History (Updated 04/14/21 @ 09:08 by John Castellano MD) Anxiety Arthritis Arthritis of right shoulder region BMI 31.0-31.9,adult BMI 36.0-36.9,adult BMI 37.0-37.9, adult BMI greater than 30 Bronchitis Cervical radicular pain Cervical spondylosis with myelopathy and radiculopathy Chest pain unspecified angina 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 Depression Dyspnea Dyspnea on exertion Ectopic atrial rhythm Essential (primary) hypertension Family history of colon cancer Ganglion cyst of tendon sheath of left hand GERD (gastroesophageal reflux disease) GERD without esophagitis Hypertension Knee osteoarthritis Lumbar spondylolysis Migraines Nausea Nausea and vomiting Nonspecific ST-T wave electrocardiographic changes Abnormal ST Wave Osteoarthritis of right knee right total knee April 2020 Pneumonia Right carpal tunnel syndrome Screen for colon cancer Screening mammogram for high-risk patient Shingles Stage 3 chronic kidney disease Surgical History Surgical History History of ankle surgery History of hemorrhoidectomy History of total right knee replacement surgery April 2020 Family History Family History Grandparent Family history of transient ischemic attacks Diabetes mellitus Father Cerebrovascular accident Carcinoma of colon Family history of diabetes mellitus in first degree relative Family history of heart disease in male family member before age 55 Mother Carcinoma of colon Sibling Family history of malignant neoplasm of brain Other Family history of malignant neoplasm of male breast Social History Social History Smoking status: Never smoker Second hand tobacco smoke exposure: Yes () Additional smoking assessment comments: DENIES ANY FORM OF TOBACCO/NICOTINE USE Alcohol intake: never Alcohol use details: Occational Substance use: never Substance use type: does not use Living arrangements: with family Gender identity (if verbalized by the patient): Female Spiritual care concerns: No Meds Home Medications and Allergies Home Medications Medication Instructions Recorded Confirmed Type acetaminophen 650 mg 650 mg PO Q8H 11/20/19 04/06/21 History tablet,extended release diphenoxylate-atropine 2.5 2 tablet PO PRN PRN #14 tablet 11/16/20 04/06/21 Rx mg-0.025 mg tablet cyclobenzaprine 10 mg tablet 10
[2021-04-14] MEDS: BENZOCAINE (*SP) 60 ML SPRAY CAN (HURRICAINE) 1 SPRAY MUCOUS MEM (09:17)
[2021-04-14 09:50] VITALS: BP 119/73; PULSE 88; RESP 19; O2SAT 99
[2021-04-14 10:00] VITALS: BP 129/79; PULSE 83; RESP 20; O2SAT 97
[2021-04-14 10:10] VITALS: BP 141/87; PULSE 82; RESP 22; O2SAT 96
== END 2021-04-14 10:18 | disposition home or self-care (01) ==
PROVIDERS: PCP Family Medicine; Visit Provider Internal Medicine Gastroenterology
PROC: 0DJ08ZZ Inspection of Upper Intestinal Tract, Via Natural or Artificial Opening Endoscopic (ICD-10-PCS; CPT 43235; principal; 2021-04-14 09:30)
DX: Z12.11 Encounter for screening for malignant neoplasm of colon (principal); K57.30 Diverticulosis of large intestine without perforation or abscess without bleeding; K64.8 Other hemorrhoids; Z80.0 Family history of malignant neoplasm of digestive organs; K21.00 Gastro-esophageal reflux disease with esophagitis, without bleeding; K29.50 Unspecified chronic gastritis without bleeding; I12.9 Hypertensive chronic kidney disease with stage 1 through stage 4 chronic kidney disease, or unspecified chronic kidney disease; N18.30 Chronic kidney disease, stage 3 unspecified; F41.8 Other specified anxiety disorders; E66.9 Obesity, unspecified; Z68.33 Body mass index [BMI] 33.0-33.9, adult
CPT/HCPCS: 43239; G0105; 88305; C9803; J2001; J2704; J7120; U0003; U0005

== ENCOUNTER → 2023-05-26 11:46 | Outpatient (CLI) | payer MEDICARE, SELFPAY ==
--- NOTE | ~2023-05-26 | MM_ITS ---
EXAMINATION: MM screening rubén BI w hank HISTORY: Screening mammogram TECHNIQUE: Craniocaudal and mediolateral oblique 3-D tomosynthesis images were obtained and synthetic 2-D images were generated. CAD analysis was submitted and interpreted. COMPARISON: November 03, 2018 bilateral screening mammogram BREAST PARENCHYMAL COMPOSITION: There are scattered areas of fibroglandular density. FINDINGS: There is no evidence of suspicious mass, calcification, or architectural distortion to sugg est malignancy in either breast. There has been no suspicious interval change. IMPRESSION: 1. No mammographic evidence of malignancy. 2. Recommend routine screening mammography in one year. BI-RADS Category 1: Negative Reviewed, dictated and finalized at location A.
== END ==
PROVIDERS: PCP Family Medicine; Visit Provider Family Medicine
DX: Z12.31 Encounter for screening mammogram for malignant neoplasm of breast (principal)
CPT/HCPCS: 77063; 77067

== ENCOUNTER 2023-06-28 13:31 | Outpatient (CLI) | payer MEDICARE, SELFPAY ==
--- NOTE | 2023-06-28 14:45 | NEURO_ITS ---
Impression: # Diabetic complains of paresthesia of upper extremities. # Normal Nerve Conduction Study. # No Carpal Tunnel Syndrome or ulnar neuropathy. # Normal needle/EMG exam. # Clinical correlation recommended. Nerve Conduction Studies Anti Sensory Summary Table Stim Site NR Peak (ms) P-T Amp (?V) Site1 Site2 Delta-P (ms) Dist (cm) Chemo (m/s) Left Median Anti Sensory (2-3nd Digit) Wrist 2.7 57.0 Wrist 2-3nd Digit 2.7 14.0 52 Wrist 2.6 57.5 Wrist 2-3nd Digit 2.7 14.0 52 Left Radial Anti Sensory (Base 1st Digit) Wrist 1.9 25.3 Wrist Base 1st Digit 1.9 0.0 Left Ulnar Anti Sensory (5th Digit) Wrist 2.0 57.6 Wrist 5th Digit 2.0 14.0 70 Motor Summary Table Stim Site NR Onset (ms) O-P Amp (mV) Site1 Site2 Delta-0 (ms) Dist (cm) Chemo (m/s) Left Median Motor (Abd Poll Brev) Wrist 3.0 4.7 Elbow Wrist 4.4 28.0 64 Elbow 7.4 4.0 Left Ulnar Motor (Abd Dig Minimi) Wrist 2.1 7.7 A Elbow Wrist 4.6 28.0 61 A Elbow 6.7 6.1 F Wave Studies NR F-Lat (ms) L-R F-Lat (ms) Left Median (Mrkrs) (Abd Poll Brev) 24.27 Left Ulnar (Mrkrs) (Abd Dig Min) 25.45 EMG Side Muscle Nerve Root Ins Act Fibs Amp Dur Recrt Comment Left 1stDorInt Ulnar C8-T1 Nml Nml Nml Nml Nml Left Ext Indicis Radial (Post Int) C7-8 Nml Nml Nml Nml Nml Left Ext Digitorum Radial (Post Int) C7-8 Nml Nml Nml Nml Nml Left BrachioRad Radial C5-6 Nml Nml Nml Nml Nml Left PronatorTeres Median C6-7 Nml Nml Nml Nml Nml Left Abd Poll Brev Median C8-T1 Nml Nml Nml Nml Nml Left ABD Dig Min Ulnar C8-T1 Nml Nml Nml Nml Nml MTDD
== END 2023-06-28 13:32 | disposition home or self-care (01) ==
PROVIDERS: PCP Family Medicine; Visit Provider Nurse Practitioner Family
DX: G56.02 Carpal tunnel syndrome, left upper limb (principal)
CPT/HCPCS: 95886; 95909; 95913

== ENCOUNTER 2024-05-30 00:21 | Day surgery (SDC) | payer MEDICARE, SELFPAY ==
[2024-05-22 14:08] VITALS: BMI 37.8
[2024-05-30 09:50] VITALS: BP 151/97; PULSE 91; RESP 16; TEMP 36.1; O2SAT 96; BMI 36.3
[2024-05-30] MEDS: LACTATED RINGERS 1,000 ML 150 ML IV CONT (10:03)
[2024-05-30 10:09] LABS: Glucose Point of Care 103 mg/dl (65-105)
[2024-05-30] MEDS: ONDANSETRON INJ 4 MG/2 ML VIAL IV PUSH (10:09)
--- NOTE | 2024-05-30 10:28 | P.PNAN_ITS ---
Anes - Initial Pre Proc Eval Procedure: Operation Date: 05/30/24 10:30 Proposed Procedures p Colonoscopy - John Castellano MD Date/Time: 05/30/24 10:28 Surgeon: John Castellano MD Pre Op Diagnosis: Hemorrhoids, Fam. Hx. colon CA, Diverticulosis Patient Data Age: 68 Gender: F Height: 1.55 m Weight: 87.4 kg Last Vital Signs Temp 36.1 C L 05/30/24 09:50 Pulse 91 05/30/24 09:50 Resp 16 05/30/24 09:50 BP 151/97 H 05/30/24 09:50 Pulse Ox 96 05/30/24 09:50 O2 Del Method Room Air 05/30/24 09:50 Allergies Allergy/AdvReac Type Severity Reaction Status Date / Time cephalexin Allergy Intermediate c-diff Verified 05/30/24 09:45 metoclopramide Allergy Intermediate Confusion Verified 05/30/24 09:45 Cephalosporins AdvReac Intermediate Redness of Verified 05/30/24 09:45 Skin Latex, Natural Rubber AdvReac Intermediate Rash Verified 05/30/24 09:45 erythromycin base AdvReac Mild Gastrointestinal Verified 05/30/24 09:45 Upset Sulfa (Sulfonamide AdvReac Mild Rash Verified 05/30/24 09:45 Antibiotics) sulfanilamide AdvReac Mild Rash Verified 05/30/24 09:45 Home Medications Medication Instructions Recorded Confirmed Type acetaminophen 650 mg 650 mg PO Q8H 11/20/19 05/30/24 History tablet,extended release (Tylenol Arthritis Pain) fluoxetine 20 mg capsule See Rx Instructions .Route 11/02/23 05/30/24 Rx .COMPLEX #180 caps cholecalciferol (vitamin D3) 125 125 mcg PO DAILY 01/08/24 05/30/24 History mcg (5,000 unit) capsule diltiazem HCl 60 mg 60 mg PO Q12H #60 caps 01/08/24 05/30/24 Rx capsule,extended release 12 hr losartan 100 mg tablet 100 mg PO HS #90 tabs 02/01/24 05/30/24 Rx pregabalin 25 mg capsule 25 mg PO QHS #90 caps 03/10/24 05/30/24 Rx metformin 500 mg tablet,extended 500 mg PO DAILY #90 tabs 03/11/24 05/30/24 Rx release 24 hr semaglutide 1 mg/dose (4 mg/3 mL) 1 mg (0.75 mL) subcut WEEKLY #9 mL 04/22/24 05/22/24 Rx subcutaneous pen injector (Ozempic) vit C 250 mg-vit E 90 mg-zinc 40 1 tablet PO BID 04/22/24 05/30/24 History mg-copper 1 [id number] capsule (PreserVision AREDS-2) bupropion HCl 100 mg tablet 200 mg PO HS #180 tabs 05/06/24 05/30/24 Rx hydroxyzine HCl 10 mg tablet 10 mg PO TID PRN anxiety #45 tabs 05/06/24 05/30/24 Rx cyclobenzaprine 10 mg tablet 10 mg PO TID PRN muscle spasm #90 05/26/24 05/30/24 Rx tabs Laboratory Tests 05/30/24 09:57 POC Capillary Glucose 103 mg/dl (65-105) Patient hx anesthesia problems: none Family hx anesthesia problems: none Results Review: All pre-operative results and documents have been reviewed as part of the pre- operative evaluation. 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 Depression Diabetes mellitus Diabetes mellitus with nephropathy Dizziness Dyspnea Dyspnea on exertion Ectopic atrial rhythm Essential (primary) hypertension Family history of colon cancer Ganglion cyst of tendon sheath of left hand GERD (gastroesophageal reflux disease) GERD with esophagitis GERD without esophagitis Hypertension Knee osteoarthritis Lumbar spondylolysis Migraines Nausea Nausea and vomiting Nonspecific ST-T wave electrocardiographic changes Abnormal ST Wave Osteoarthritis of right knee right total knee April 2020 Pneumonia Right carpal tunnel syndrome Right elbow pain Screen for colon cancer Screening mammogram for high-risk patient Lani Stage 3 chronic kidney disease Vitamin D deficiency Surgical History Surgical History History of ankle surgery History of hemorrhoidectomy History of total right knee replacement surgery April 2020 Hx of breast surgery Family History Family History Grandparent Family history of transient ischemic attacks Diabetes mellitus Father Cerebrovascular accident Carcinoma of colon Family history of diabetes mellitus in first degree relative Family history of heart disease in male family member before age 55 Hypertension Mother Carcinoma of colon Sibling Diabetes mellitus Carcinoma of colon Rheumatoid arthritis Hypertension Sibling Neoplasm of brain Other Family history of malignant neoplasm of male breast Social History Social History Smoking status: Never smoker Second hand tobacco smoke exposure: Yes () Additional smoking assessment comments: DENIES ANY FORM OF TOBACCO/NICOTINE USE Alcohol intake: current Alcohol use details: rarely Substance use: never Substance use type: does not use Do You Feel Safe in your Home?: Yes Lack of Transportation: YES Lack of Food: Never True Current Housing: I Have Housing Concerned About Future Housing: No Difficulty Paying Gas/Electric Bills: No Difficulty Paying for Meds: No Currently Unemployed: No Education: Bachelor's Degree Difficulty w/ Childcare or Family Care: No Living arrangements: alone 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 Informed Consent: The patient's anesthetic plan and its attendant risks and benefits were discussed with the patient/family/POA. Questions were solicited and answers provided to the satisfaction of the patient/family/POA.
--- NOTE | 2024-05-30 10:30 | PM.HPGS ---
History of Present Illness History of Present Illness Consent: Risks, benefits, and alternatives have been discussed and questions answered. Patient agrees to proceed with procedure. Chief complaint: Hemorrhoids, Fam. Hx. 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 Depression Diabetes mellitus Diabetes mellitus with nephropathy Dizziness Dyspnea Dyspnea on exertion Ectopic atrial rhythm Essential (primary) hypertension Family history of colon cancer Ganglion cyst of tendon sheath of left hand GERD (gastroesophageal reflux disease) GERD with esophagitis GERD without esophagitis Hypertension Knee osteoarthritis Lumbar spondylolysis Migraines Nausea Nausea and vomiting Nonspecific ST-T wave electrocardiographic changes Abnormal ST Wave Osteoarthritis of right knee right total knee April 2020 Pneumonia Right carpal tunnel syndrome Right elbow pain Screen for colon cancer Screening mammogram for high-risk patient Lani Stage 3 chronic kidney disease Vitamin D deficiency Surgical History Surgical History History of ankle surgery History of hemorrhoidectomy History of total right knee replacement surgery April 2020 Hx of breast surgery Family History Family History Grandparent Family history of transient ischemic attacks Diabetes mellitus Father Cerebrovascular accident Carcinoma of colon Family history of diabetes mellitus in first degree relative Family history of heart disease in male family member before age 55 Hypertension Mother Carcinoma of colon Sibling Diabetes mellitus Carcinoma of colon Rheumatoid arthritis Hypertension Sibling Neoplasm of brain Other Family history of malignant neoplasm of male breast Social History Social History Smoking status: Never smoker Second hand tobacco smoke exposure: Yes () Additional smoking assessment comments: DENIES ANY FORM OF TOBACCO/NICOTINE USE Alcohol intake: current Alcohol use details: rarely Substance use: never Substance use type: does not use Do You Feel Safe in your Home?: Yes Lack of Transportation: YES Lack of Food: Never True Current Housing: I Have Housing Concerned About Future Housing: No Difficulty Paying Gas/Electric Bills: No Difficulty Paying for Meds: No Currently Unemployed: No Education: Bachelor's Degree Difficulty w/ Childcare or Family Care: No Living arrangements: alone 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 Spiritual care concerns: No Meds Home Medications and Allergies Home Medications Medication Instructions Recorded Confirmed Type acetaminophen 650 mg 650 mg PO Q8H 11/20/19 05/30/24 History tablet,extended release (Tylenol Arthritis Pain) fluoxetine 20 mg capsule See Rx Instructions .Route 11/02/23 05/30/24 Rx .COMPLEX #180 caps cholecalciferol (vitamin D3) 125 125 mcg PO DAILY 01/08/24 05/30/24 History mcg (5,000 unit) capsule diltiazem HCl 60 mg 60 mg PO Q12H #60 caps 01/08/24 05/30/24 Rx capsule,extended release 12 hr losartan 100 mg tablet 100 mg PO HS #90 tabs 02/01/24 05/30/24 Rx pregabalin 25 mg capsule 25 mg PO QHS #90 caps 03/10/24 05/30/24 Rx metformin 500 mg tablet,extended 500 mg PO DAILY #90 tabs 03/11/24 05/30/24 Rx release 24 hr semaglutide 1 mg/dose (4 mg/3 mL) 1 mg (0.75 mL) subcut WEEKLY #9 mL 04/22/24 05/22/24 Rx subcutaneous pen injector (Ozempic) vit C 250 mg-vit E 90 mg-zinc 40 1 tablet PO BID 04/22/24 05/30/24 History mg-copper 1 [id number] capsule (PreserVision AREDS-2) bupropion HCl 100 mg tablet 200 mg PO HS #180 tabs 05/06/24 05/30/24 Rx hydroxyzine HCl 10 mg tablet 10 mg PO TID PRN anxiety #45 tabs 05/06/24 05/30/24 Rx cyclobenzaprine 10 mg tablet 10 mg PO TID PRN muscle spasm #90 05/26/24 05/30/24 Rx tabs Allergies Allergy/AdvReac Type Severity Reaction Status Date / Time cephalexin Allergy Intermediate c-diff Verified 05/30/24 09:45 metoclopramide Allergy Intermediate Confusion Verified 05/30/24 09:45 Cephalosporins AdvReac Intermediate Redness of Verified 05/30/24 09:45 Skin Latex, Natural Rubber AdvReac Intermediate Rash Verified 05/30/24 09:45 erythromycin base AdvReac Mild Gastrointestinal Verified 05/30/24 09:45 Upset Sulfa (Sulfonamide AdvReac Mild Rash Verified 05/30/24 09:45 Antibiotics) sulfanilamide AdvReac Mild Rash Verified 05/30/24 09:45 Vital Signs Vital Signs - 24 hr 05/30/24 09:50 Temperature 96.9 F L Pulse Rate 91 Respiratory Rate 16 Blood Pressure 151/97 H Pulse Oximetry 96 Oxygen Delivery Room Air Exam Const: General: comfortable and no acute distress HENMT: Face/Nose/Sinus: Normal nares present Eyes: General: appearance normal, both eyes and all related structures Neck: Neck: no JVD Resp: Auscultation: clear to auscultation bilaterally Cardio: Rate: regular rate Rhythm: regular rhythm GI: Inspection: non-distended GI Palp: Yes Soft to palpation Skin: General skin exam: normal color Neuro: General: gait normal Speech: normal speech Extrem: General: normal to inspection Psych: Mental Status: mental status grossly normal Assessment and Plan Assessment and plan (1) Family history of colon cancer: Code(s): Z80.0 - Family history of malignant neoplasm of digestive organs Status: Acute Assessment and Plan: colonoscopy
[2024-05-30 10:44] VITALS: BP 117/71; PULSE 80; RESP 18; O2SAT 93
[2024-05-30 10:54] VITALS: BP 123/71; PULSE 77; RESP 18; O2SAT 96
[2024-05-30 11:04] VITALS: BP 113/83; PULSE 78; RESP 19; O2SAT 96
== END 2024-05-30 11:20 | disposition home or self-care (01) ==
PROVIDERS: PCP Family Medicine; Referring Provider Nurse Practitioner Family; Visit Provider Internal Medicine Gastroenterology
PROC: 0DJD8ZZ Inspection of Lower Intestinal Tract, Via Natural or Artificial Opening Endoscopic (ICD-10-PCS; CPT 45378; principal; 2024-05-30 10:30)
DX: Z12.11 Encounter for screening for malignant neoplasm of colon (principal); K57.30 Diverticulosis of large intestine without perforation or abscess without bleeding; K21.9 Gastro-esophageal reflux disease without esophagitis; E11.21 Type 2 diabetes mellitus with diabetic nephropathy; I12.9 Hypertensive chronic kidney disease with stage 1 through stage 4 chronic kidney disease, or unspecified chronic kidney disease; N18.30 Chronic kidney disease, stage 3 unspecified; F32.A Depression, unspecified; F41.9 Anxiety disorder, unspecified; E53.9 Vitamin B deficiency, unspecified; M17.11 Unilateral primary osteoarthritis, right knee; G56.01 Carpal tunnel syndrome, right upper limb; I49.8 Other specified cardiac arrhythmias; M47.12 Other spondylosis with myelopathy, cervical region; M47.22 Other spondylosis with radiculopathy, cervical region; M50.321 Other cervical disc degeneration at C4-C5 level; M43.06 Spondylolysis, lumbar region; E66.9 Obesity, unspecified; Z68.36 Body mass index [BMI] 36.0-36.9, adult; Z79.84 Long term (current) use of oral hypoglycemic drugs; Z79.85 Long-term (current) use of injectable non-insulin antidiabetic drugs; Z98.890 Other specified postprocedural states; Z80.0 Family history of malignant neoplasm of digestive organs; Z80.3 Family history of malignant neoplasm of breast; Z80.8 Family history of malignant neoplasm of other organs or systems; Z82.49 Family history of ischemic heart disease and other diseases of the circulatory system
CPT/HCPCS: G0105; 82948; J2405; J2704; J7120

== ENCOUNTER 2025-05-01 11:59 | Outpatient (CLI) | payer MEDICARE, SELFPAY ==
--- NOTE | ~2025-05-01 | MM_ITS ---
EXAMINATION: MM screening [facility] BI w [facility]ank HISTORY: Screening TECHNIQUE: Craniocaudal and mediolateral oblique 3-D tomosynthesis images were obtained and synthetic 2-D images were generated. CAD analysis was submitted and interpreted. COMPARISON: Comparison to multiple prior studies sequentially, with oldest reviewed study dated 09/11/2017. BREAST PARENCHYMAL COMPOSITION: Not dense: There are scattered areas of fibroglandular density. FINDINGS: There is no evidence of suspicious mass, calcification, or architectural distortion to suggest malignancy in either breast. There has been no suspicious interval change. IMPRESSION: 1. No mammographic evidence of malignancy. 2. Recommend routine screening mammography in one year. BI-RADS Category 1: Negative Reviewed, dictated and finalized at location B.
--- OUTSIDE RECORDS SUMMARY | 2025-05-01 12:08 | XMS_ITS | Clinical Summary ---
Author Organization [email or web address] Address [address] [place] [address] Care Team Providers Care Development Assistant Name Role Phone Bernard Mcdonald MD Primary Care Provider [phone] Social History Tobacco Use Types Packs/Day Years Used Date Smoking Tobacco: Never Assessed Comments Unknown Sex and Gender Information Value Date Recorded Sex Assigned at Not on file Legal Sex Female 9:28 AM CDT Gender Identity Not on file Sexual Orientation Not on file Plan of Treatment Health Maintenance Due Date Last Done Comments DTAP/TDAP/TD VACCINES (1 - Tdap) 1973 BREAST CANCER SCREENING 1994 COLORECTAL SCREENING 10/07/1999 Colorectal Cancer Screening 10/07/1999 FIT-DNA Q 3 years 10/07/1999 FIT/FOBT Q 1 year 10/07/1999 Flex Sig/CT Colonography Q 5 years 10/07/1999 PNEUMOCOCCAL VACCINE 50+ YEARS (1 of 1 - PCV) 10/07/19 05 ZOSTER VACCINE (1 of 2) 2004 OSTEOPOROSIS SCREENING 10/07/2019 INFLUENZA VACCINE (#1) 2025 RSV VACCINE (60+ or ) (1 - 1-dose 75+ series) 2029 Insurance [facility] MCR [facility] BLUE ACCESS CHOICE Care Teams Development Assistant Relationship Specialty Start Date End Date Bernard Mcdonald MD [address] [place] [address] PCP - General Family Practice 10/16/19
== END 2025-05-01 12:00 | disposition home or self-care (01) ==
LOC: CHSIMG 12:01
PROVIDERS: PCP Family Medicine; Visit Provider Family Medicine
DX: Z12.31 Encounter for screening mammogram for malignant neoplasm of breast (principal)
CPT/HCPCS: 77063; 77067